=== PATIENT | female | born 1955 | race Caucasian/White ===

== ENCOUNTER → 2019-02-08 09:15 | Outpatient (CLI) | payer OTHER, SELFPAY ==
--- NOTE | 2019-02-08 | DI.MG.S_ITS ---
BILATERAL DIGITAL SCREENING MAMMOGRAM 3D/2D WITH CAD WITH AUGMENTATION: 02/08/2019 CLINICAL: Routine screening. Comparison is made to exams dated: 09/14/2017 mammogram, 08/19/2016 mammogram, and 08/16/2015 mammogram - [facility]. The tissue of both breasts is heterogeneously dense. This may lower the sensitivity of mammography. Current study was also evaluated with a Computer Aided Detection (CAD) system. Bilateral breast implants are intact. No significant masses, calcifications, or other findings are seen in either breast. There has been no significant interval change. IMPRESSION: NEGATIVE There is no mammographic evidence of malignancy. A 1 year screening mammogram is recommended. This exam was interpreted at Station ID: [id number]. NOTE: For mammograms, a report in lay terms will be sent to the patient. Approximately 15% of breast malignancies will not be visualized mammographically. In the management of a palpable breast mass, a negative mammogram must not discourage biopsy of a clinically suspicious lesion. Electronically Signed By: Wojciech jackson/vaughn:02/08/2019 16:58:11 copy to: NII LEE letter sent: Normal Exam ACR BI-RADS Category 1: Negative 3341F
== END ==
PROVIDERS: Family Provider Family Medicine; PCP Family Medicine; Visit Provider Specialist
DX: Z12.31 Encounter for screening mammogram for malignant neoplasm of breast (principal)
CPT/HCPCS: 77063; 77067

== ENCOUNTER → 2020-04-02 16:12 | Outpatient (CLI) | payer OTHER, SELFPAY ==
--- NOTE | 2020-04-02 | DI.MG.S_ITS ---
BILATERAL DIGITAL SCREENING MAMMOGRAM 3D/2D WITH CAD WITH AUGMENTATION: 04/02/2020 CLINICAL: Routine screening. Comparison is made to exams dated: 02/08/2019 mammogram, 09/14/2017 mammogram, and 08/19/2016 mammogram - [facility]. The tissue of both breasts is heterogeneously dense. This may lower the sensitivity of mammography. Current study was also evaluated with a Computer Aided Detection (CAD) system. Bilateral breast implants are intact. No significant masses, calcifications, or other findings are seen in either breast. There has been no significant interval change. IMPRESSION: NEGATIVE There is no mammographic evidence of malignancy. A 1 year screening mammogram is recommended. This exam was interpreted at Station ID: [id number]. NOTE: For mammograms, a report in lay terms will be sent to the patient. Approximately 15% of breast malignancies will not be visualized mammographically. In the management of a palpable breast mass, a negative mammogram must not discourage biopsy of a clinically suspicious lesion. Electronically Signed By: Nikolai perry/vaughn:04/02/2020 17:32:44 copy to: NII LEE letter sent: Normal Exam ACR BI-RADS Category 1: Negative 3341F
== END ==
PROVIDERS: Family Provider Family Medicine; PCP Family Medicine; Referring Provider Specialist; Visit Provider Specialist
DX: Z12.31 Encounter for screening mammogram for malignant neoplasm of breast (principal)
CPT/HCPCS: 77063; 77067

== ENCOUNTER → 2021-08-02 10:07 | Outpatient (CLI) | payer MEDICARE, OTHER, SELFPAY ==
--- NOTE | 2021-08-02 | DI.MG.S_ITS ---
BILATERAL DIGITAL SCREENING MAMMOGRAM 3D/2D WITH CAD WITH AUGMENTATION: 08/02/2021 CLINICAL: Routine screening. Comparison is made to exams dated: 04/02/2020 mammogram, 02/08/2019 mammogram, and 09/14/2017 mammogram - [facility]. The tissue of both breasts is heterogeneously dense. This may lower the sensitivity of mammography. Current study was also evaluated with a Computer Aided Detection (CAD) system. Bilateral breast implants are intact. No significant masses, calcifications, or other findings are seen in either breast. There has been no significant interval change. IMPRESSION: NEGATIVE There is no mammographic evidence of malignancy. A 1 year screening mammogram is recommended. This exam was interpreted at Station ID: [id number]. NOTE: For mammograms, a report in lay terms will be sent to the patient. Approximately 15% of breast malignancies will not be visualized mammographically. In the management of a palpable breast mass, a negative mammogram must not discourage biopsy of a clinically suspicious lesion. Electronically Signed By: Nikolai perry/vaughn:08/02/2021 14:42:59 copy to: NII LEE letter sent: Normal Exam ACR BI-RADS Category 1: Negative [id number]
--- NOTE | 2021-08-02 | DI.RAD.S_ITS ---
PROCEDURE: XR DEXA AXIAL SKELETON INDICATIONS: ROUTINE SCREENING COMPARISON: [facility], CR, DEXA AXIAL SKELETON, 09/14/2017, 13:51. FINDINGS: This blank DEXA report has been sent in error by the PACS system. The correct and complete report will be forthcoming in 1-2 days. Thank you for your patience and understanding. Dictated by: Cherelle Hankins MD, PhD on 08/02/2021 at 14:38 Approved by: Cherelle Hankins MD, PhD on 08/02/2021 at 14:38
== END ==
PROVIDERS: PCP Family Medicine; Referring Provider Family Medicine; Visit Provider Family Medicine
DX: M85.852 Other specified disorders of bone density and structure, left thigh; Z12.31 Encounter for screening mammogram for malignant neoplasm of breast; Z78.0 Asymptomatic menopausal state; K92.9 Disease of digestive system, unspecified; Z87.891 Personal history of nicotine dependence
CPT/HCPCS: 77063; 77067; 77080

== ENCOUNTER 2021-08-08 14:30 | Outpatient (RCR) | payer MEDICARE, OTHER, SELFPAY ==
--- NOTE | 2021-04-03 10:29 | PT.OIE ---
Current Diagnoses Unspecified urinary incontinence (03/27/21) Past Medical History (Last Reviewed 10/09/20 @ 13:02 by JUDITH Garcia) Depression Insomnia Obstructive sleep apnea Past Surgical History (Last Reviewed 10/09/20 @ 13:02 by JUDITH Garcia) History of breast augmentation Status post bunionectomy Status post tubal ligation Visit Care Team Role Provider Type Tono Young MD Attending Provider Non-Staff Primary Care Provider Referring Provider Specialty: Family Practice Address: [address] [place] [address], [phone] Email: Physical Therapy Initial Evaluation PT-OP-A Visit Information Start: 03/27/21 09:44 Freq: Status: Active Protocol: Document 03/27/21 11:15 [facility] (Rec: 04/02/21 17:05 [facility] [email or web address]) Out-Patient Physical Therapy Visit Information Visit Information Visit Type Initial Evaluation Visit Start Time 11:15 Visit Stop Time 12:00 Total Visit Minutes 45 Visit Number 1 Evaluation Information Evaluation Date 03/27/21 PT-OP-B Current Condition Start: 03/27/21 09:44 Freq: Status: Active Protocol: Document 03/27/21 11:26 [facility] (Rec: 03/27/21 11:41 [facility] [id number]) Current Condition History of Current Condition History of Current Condition a couple of years ago she just had stress incontinence, when she walks and hikes and does activities in standing she leaks. No c/o vaginal pressure, has had a Dand C and poylup removed. If she passes gas she will get a little bit. 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 IF she goes to long between voids she has do the urge deference tehcnique. Any time she walks she has some leakage. PT-OP-I Pelvic Floor Start: 03/27/21 09:44 Freq: Status: Active Protocol: Document 03/27/21 11:15 [facility] (Rec: 04/03/21 10:27 [facility] [email or web address]) Pelvic Floor Assessment Urine Pelvic Floor Surgery No Urinary Symptoms Urge Sensation Other Urinary Symptoms urinary leakage while walking, stress incontinence Leakage Size Medium Leaks Per Day 2 per week Voiding Frequency every 2 hours Nocturia no Urine Pad Type Maxi Pad Pelvic Clock Pelvic Clock 12-3 Atrophy Pelvic Clock 3-6 Atrophy Pelvic Clock 6-9 Atrophy Pelvic Clock 9-12 Atrophy Contraction Ability Voluntary Contraction Weak Voluntary Relaxation Weak Manual Muscle Testing Left 3 Manual Muscle Testing Right 3 Manual Muscle Testing Anterior 2 Manual Muscle Testing Posterior 3 PT-OP-Q Treatments Start: 03/27/21 09:44 Freq: Status: Active Protocol: Document 03/27/21 11:15 [facility] (Rec: 04/03/21 10:28 [facility] [email or web address]) Therapeutic Exercises Supine Exercises pelvic floor long holds Reps/Minutes x 10 reps 10 sec on 10 sec off Self-Care/Home Management Treatment Education Patient Education Home Exercise Program Other Education bladder retraining urge deference technique PT-OP-T Assessment and Plan Start: 03/27/21 09:44 Freq: Status: Active Protocol: Document 03/27/21 11:15 [facility] (Rec: 04/03/21 10:27 [facility] [email or web address]) Physical Therapy Assessment Rehab Potential Rehabilitation Potential Excellent Evaluation Complexity Number of Personal Factors/Comorbidities 0 Number of Body Systems Impaired 1-2 Clinical Presentation at Evaluation Stable Impairments Impairments Activity Tolerance,Functional Activities,Strength,Tone Other Impairments urinary stress and urge incontinence Goals Improve endurance of the pelvic floor Impairment Decreased pelvic floor endurance Kiln Pusher Goal (LTG) Improve endurance of the pelvic to 10 second hold time in both supine and standing LTG Duration 8 weeks Improve overall strength of the levator ani Impairment Decreased strength of the levator ani Kiln Pusher Goal (LTG) Improve strength of the levator ani to 4/5 or better for improved support of the bladder LTG Duration 8 weeks urinary leakage with strong urge to void Short Term Goal (STG) Alyssa is educated in the urge deference technique and bladder retraining STG Duration 4 weeks Kiln Pusher Goal (LTG) Alyssa reports overall reduction in urinary urgency and urge incontinence LTG Duration 8 weeks Alyssa is able to walk 3-5 miiles without c/o urinary leakage Impairment Urinary stress incontinence with walking [facility]cf Goal (LTG) Alyssa is able to walk 3-5 miles without c/o urinary leakge LTG Duration 8 weeks Assessment Summary Assessment Alyssa is an active 65 year old female who presents to physical therapy today with symptoms of urinary stress incontinence and urinary leakage when walking. She also describes urinary urgency . Her symptoms began two years ago and are worsening. She reports leaking 2 times per week and wears maxi pads for protection. Leakage is caused by waking and light activity and strong urge to void. We discussed water intake today and Alyssa reports she is most likely not drinking enough fluids and restricts fluids to avoid leakage. She also reports emptying her bladder frequently before experiencing the urge to void. With examination today Alyssa has limited endurance of levator ani contractions. She test 2/5 MMT for anterior wall strength and 3/5 MMT for all other parts of the pelvic clock. Treatment will emphasis bladder retraining and urge deference technique, bladder irritants and bladder health info, pelvic floor endurance training and neuro re-education. Alyssa is a good candidate for PT Physical Therapy Plan Frequency and Duration Frequency of Treatment 1x/Week Duration of Treatment 8 Plan of Care Start Date 03/27/21 Plan of Care End Date 05/22/21 Therapeutic Interventions Therapeutic Interventions Home Exercise Program, Neuromuscular Re-education, Patient/Caregiver Education, Self-Care/Home Management, Therapeutic Exercises Next Visit Focus/Plan Next Note Type Treatment Note Next Visit Plan Review urge deference technique and bladder retraining, EMG biofeedback for pelvic floor endurance training and strength.
--- NOTE | 2021-04-03 10:29 | PT.OPPOC ---
Physical, Occupational & Speech Therapy At [facility] Current Diagnoses Unspecified urinary incontinence (03/27/21) Visit Care Team Role Provider Type Tono Young MD Attending Provider Non-Staff Primary Care Provider Referring Provider Specialty: Family Practice Address: [address] [place] [address], [phone] Email: Plan Of Care PT-OP-T Assessment and Plan Start: 03/27/21 09:44 Freq: Status: Active Protocol: Document 03/27/21 11:15 [facility] (Rec: 04/03/21 10:27 [facility] [email or web address]) Physical Therapy Assessment Rehab Potential Rehabilitation Potential Excellent Evaluation Complexity Number of Personal Factors/Comorbidities 0 Number of Body Systems Impaired 1-2 Clinical Presentation at Evaluation Stable Impairments Impairments Activity Tolerance,Functional Activities,Strength,Tone Other Impairments urinary stress and urge incontinence Goals Improve endurance of the pelvic floor Impairment Decreased pelvic floor endurance Halfway Goal (LTG) Improve endurance of the pelvic to 10 second hold time in both supine and standing LTG Duration 8 weeks Improve overall strength of the levator ani Impairment Decreased strength of the levator ani Halfway Goal (LTG) Improve strength of the levator ani to 4/5 or better for improved support of the bladder LTG Duration 8 weeks urinary leakage with strong urge to void Short Term Goal (STG) Alyssa is educated in the urge deference technique and bladder retraining STG Duration 4 weeks Halfway Goal (LTG) Alyssa reports overall reduction in urinary urgency and urge incontinence LTG Duration 8 weeks Alyssa is able to walk 3-5 miiles without c/o urinary leakage Impairment Urinary stress incontinence with walking Logistics Clerk Goal (LTG) Alyssa is able to walk 3-5 miles without c/o urinary leakage LTG Duration 8 weeks Assessment Summary Assessment Alyssa is an active 65 year old female who presents to physical therapy today with symptoms of urinary stress incontinence and urinary leakage when walking. She also describes urinary urgency . Her symptoms began two years ago and are worsening. She reports leaking 2 times per week and wears maxi pads for protection. Leakage is caused by waking and light activity and strong urge to void. We discussed water intake today and Alyssa reports she is most likely not drinking enough fluids and restricts fluids to avoid leakage. She also reports emptying her bladder frequently before experiencing the urge to void. With examination today Alyssa has limited endurance of levator ani contractions. She test 2/5 MMT for anterior wall strength and 3/5 MMT for all other parts of the pelvic clock. Treatment will emphasis bladder retraining and urge deference technique, bladder irritants and bladder health info, pelvic floor endurance training and neuro re-education. Alyssa is a good candidate for PT Physical Therapy Plan Frequency and Duration Frequency of Treatment 1x/Week Duration of Treatment 8 Plan of Care Start Date 03/27/21 Plan of Care End Date 05/22/21 Therapeutic Interventions Therapeutic Interventions Home Exercise Program, Neuromuscular Re-education, Patient/Caregiver Education, Self-Care/Home Management, Therapeutic Exercises Next Visit Focus/Plan Next Note Type Treatment Note Next Visit Plan Review urge deference technique and bladder retraining, EMG biofeedback for pelvic floor endurance training and strength. Plan of Care Dates Plan of Care Start Date 03/27/21 Plan of Care End Date 05/22/21 Electronically Signed by: Shelbie Farrar, PT 04/03/21 1519 Please Sign and Return: I have reviewed this Plan of Care and certify that the skilled therapy services above are required to meet the patient?s needs. Physician Signature Date Printed Name and Credentials Clinical Instructor Signature Printed Name and Credentials
--- NOTE | 2021-04-23 17:09 | PT.OTN ---
Current Diagnoses Unspecified urinary incontinence (04/23/21) Physical Therapy Treatment Note PT-OP-A Visit Information Start: 03/27/21 09:44 Freq: Status: Active Protocol: Document 04/23/21 16:05 [facility] (Rec: 04/23/21 17:08 [facility] [email or web address]) Out-Patient Physical Therapy Visit Information Visit Information Visit Type Treatment Note Visit Start Time 16:05 Visit Stop Time 16:50 Total Visit Minutes 45 Visit Number 2 PT-OP-B Current Condition Start: 03/27/21 09:44 Freq: Status: Active Protocol: Document 03/27/21 11:15 [facility] (Rec: 03/27/21 11:41 [facility] [id number]) Current Condition History of Current Condition History of Current Condition a couple of years ago she just had stress incontinence, when she walks and hikes and does activities in standing she leaks. No c/o vaginal pressure, has had a Dand C and poylup removed. If she passes gas she will get a little bit. 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 IF she goes to long between voids she has do the urge deference tehcnique. Any time she walks she has some leakage. PT-OP-C Subjective Start: 03/27/21 09:44 Freq: Status: Active Protocol: Document 04/23/21 16:07 [facility] (Rec: 04/23/21 16:21 [facility] [id number]) OP-PT Subjective Patient Comments Patient Comments pt reports she cut back to 1 cup of coffee, she has light leakage when she walks, she is trying to drink 64 oz water per day. She is off her cpap machinge due to a recall but it is now waking her up 5 xms per night PT-OP-I Pelvic Floor Start: 03/27/21 09:44 Freq: Status: Active Protocol: Document 03/27/21 11:15 [facility] (Rec: 04/03/21 10:27 [facility] [id number]) Pelvic Floor Assessment Urine Pelvic Floor Surgery No Urinary Symptoms Urge Sensation Other Urinary Symptoms urinary leakage while walking, stress incontinence Leakage Size Medium Leaks Per Day 2 per week Voiding Frequency every 2 hours Nocturia no Urine Pad Type Maxi Pad Pelvic Clock Pelvic Clock 12-3 Atrophy Pelvic Clock 3-6 Atrophy Pelvic Clock 6-9 Atrophy Pelvic Clock 9-12 Atrophy Contraction Ability Voluntary Contraction Weak Voluntary Relaxation Weak Manual Muscle Testing Left 3 Manual Muscle Testing Right 3 Manual Muscle Testing Anterior 2 Manual Muscle Testing Posterior 3 PT-OP-Q Treatments Start: 03/27/21 09:44 Freq: Status: Active Protocol: Document 04/23/21 16:26 [facility] (Rec: 04/23/21 17:03 [facility] [id number]) Therapeutic Exercises Supine Exercises ball squeeze Reps/Minutes x 10 reps 5 second hold time x 10 sec rest pelvic floor stretches Supine Exercise Name happy baby and modified squat stretch Reps/Minutes 1-2 reps, focus on relaxing at the sitting bones pelvic floor long holds Side bilateral Reps/Minutes x 10 reps Comments 5.4 average 12.6 max Self-Care/Home Management Treatment Education Patient Education Home Exercise Program Other Education urge deference technique was reviewed with Alyssa and she was given handouts for HEP PT-OP-T Assessment and Plan Start: 03/27/21 09:44 Freq: Status: Active Protocol: Document 04/23/21 16:05 [facility] (Rec: 04/23/21 17:08 [facility] [email or web address]) Physical Therapy Assessment Assessment Summary Assessment Alyssa has been working on both her pelvic floor contractions and her increase in water intake. She notes that at times it feels difficult to fully relax her pelvic floor following a contraction. We reviewed urge deference technique today and initiated EMG biofeedback. Alyssa tolerated this well. Physical Therapy Plan Frequency and Duration Frequency of Treatment 1x/Week Duration of Treatment 8 Plan of Care Start Date 03/27/21 Plan of Care End Date 05/22/21 Therapeutic Interventions Therapeutic Interventions Home Exercise Program, Neuromuscular Re-education, Patient/Caregiver Education, Self-Care/Home Management, Therapeutic Exercises Next Visit Focus/Plan Next Note Type Treatment Note Next Visit Plan continue with EMG biofeedback, review stretches for the pelvic floor, progress strengthening
--- NOTE | 2021-05-02 16:00 | PT.OTN ---
Current Diagnoses Unspecified urinary incontinence (05/02/21) Physical Therapy Treatment Note PT-OP-A Visit Information Start: 03/27/21 09:44 Freq: Status: Active Protocol: Document 05/02/21 13:48 [facility] (Rec: 05/02/21 14:34 [facility] [id number]) Out-Patient Physical Therapy Visit Information Visit Information Visit Type Treatment Note Visit Start Time 13:45 Visit Stop Time 14:30 Total Visit Minutes 45 Visit Number 3 PT-OP-B Current Condition Start: 03/27/21 09:44 Freq: Status: Active Protocol: Document 03/27/21 11:15 [facility] (Rec: 03/27/21 11:41 [facility] [id number]) Current Condition History of Current Condition History of Current Condition a couple of years ago she just had stress incontinence, when she walks and hikes and does activities in standing she leaks. No c/o vaginal pressure, has had a Dand C and poylup removed. If she passes gas she will get a little bit. 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 IF she goes to long between voids she has do the urge deference tehcnique. Any time she walks she has some leakage. PT-OP-C Subjective Start: 03/27/21 09:44 Freq: Status: Active Protocol: Document 05/02/21 13:48 [facility] (Rec: 05/02/21 14:34 [facility] [id number]) OP-PT Subjective Patient Comments Patient Comments pt reports the stretvches are helping and she is feeling a difference in her hips, stress incontinence a bit better Patient Reported Progress Improving PT-OP-I Pelvic Floor Start: 03/27/21 09:44 Freq: Status: Active Protocol: Document 03/27/21 11:15 [facility] (Rec: 04/03/21 10:27 [facility] [id number]) Pelvic Floor Assessment Urine Pelvic Floor Surgery No Urinary Symptoms Urge Sensation Other Urinary Symptoms urinary leakage while walking, stress incontinence Leakage Size Medium Leaks Per Day 2 per week Voiding Frequency every 2 hours Nocturia no Urine Pad Type Maxi Pad Pelvic Clock Pelvic Clock 12-3 Atrophy Pelvic Clock 3-6 Atrophy Pelvic Clock 6-9 Atrophy Pelvic Clock 9-12 Atrophy Contraction Ability Voluntary Contraction Weak Voluntary Relaxation Weak Manual Muscle Testing Left 3 Manual Muscle Testing Right 3 Manual Muscle Testing Anterior 2 Manual Muscle Testing Posterior 3 PT-OP-Q Treatments Start: 03/27/21 09:44 Freq: Status: Active Protocol: Document 05/02/21 13:48 [facility] (Rec: 05/02/21 14:34 [facility] [id number]) Therapeutic Exercises Supine Exercises TA with marches Reps/Minutes x 10 reps diaphragmatic breathing Reps/Minutes x 5 reps Sidelying Exercises clam shells Reps/Minutes 3 x 10 reps Other Exercises sit to stand with TAS engagement Reps/Minutes reviewed with patient for HEP quadruped TA Reps/Minutes x 10 reps Comments pt tends to [facility] with her upper abdominas PT-OP-T Assessment and Plan Start: 03/27/21 09:44 Freq: Status: Active Protocol: Document 05/02/21 13:48 [facility] (Rec: 05/02/21 14:34 [facility] [id number]) Physical Therapy Assessment Goals Alyssa is able to walk 3-5 miiles without c/o urinary leakage Impairment Urinary stress incontinence with walking Metaphysicist Goal (LTG) Alyssa is able to walk 3-5 miles without c/o urinary leakge currently she hasn't had any issues with walking. She will be near [facility] next week and she will test out her strength next week. LTG Duration 8 weeks Assessment Summary Assessment Alyssa didn't have her electrode for EMG biofeedback with her today so we worked on TA stabilization along with pelvic floor. I added in clam shells. Alyssa does tend to [facility] with her upper abdominal wall so we worked on diaphragmatic breathing and releasing from the rib cage to decrease downward force on the bladder Physical Therapy Plan Frequency and Duration Frequency of Treatment 1x/Week Duration of Treatment 8 Plan of Care Start Date 03/27/21 Plan of Care End Date 05/22/21 Therapeutic Interventions Therapeutic Interventions Home Exercise Program, Neuromuscular Re-education, Patient/Caregiver Education, Self-Care/Home Management, Therapeutic Exercises Next Visit Focus/Plan Next Note Type Treatment Note Next Visit Plan review clam shells and diaphragmatic breathing, TA engagement without overuse of the upper abdominals, pelvic floor strengthening
--- NOTE | 2021-05-16 17:08 | PT.OTN ---
Current Diagnoses Unspecified urinary incontinence (05/16/21) Physical Therapy Treatment Note PT-OP-A Visit Information Start: 03/27/21 09:44 Freq: Status: Active Protocol: Document 05/16/21 11:15 [facility] (Rec: 05/16/21 11:37 [facility] [id number]) Out-Patient Physical Therapy Visit Information Visit Information Visit Type Treatment Note Visit Start Time 11:15 Visit Stop Time 12:00 Total Visit Minutes 45 Visit Number 4 PT-OP-B Current Condition Start: 03/27/21 09:44 Freq: Status: Active Protocol: Document 03/27/21 11:15 [facility] (Rec: 03/27/21 11:41 [facility] [id number]) Current Condition History of Current Condition History of Current Condition a couple of years ago she just had stress incontinence, when she walks and hikes and does activities in standing she leaks. No c/o vaginal pressure, has had a Dand C and poylup removed. If she passes gas she will get a little bit. 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 IF she goes to long between voids she has do the urge deference tehcnique. Any time she walks she has some leakage. PT-OP-C Subjective Start: 03/27/21 09:44 Freq: Status: Active Protocol: Document 05/16/21 11:15 [facility] (Rec: 05/16/21 11:37 [facility] [id number]) OP-PT Subjective Patient Comments Patient Comments pt reports she did she still has some leaking with a quick sneeze PT-OP-I Pelvic Floor Start: 03/27/21 09:44 Freq: Status: Active Protocol: Document 03/27/21 11:15 [facility] (Rec: 04/03/21 10:27 [facility] [id number]) Pelvic Floor Assessment Urine Pelvic Floor Surgery No Urinary Symptoms Urge Sensation Other Urinary Symptoms urinary leakage while walking, stress incontinence Leakage Size Medium Leaks Per Day 2 per week Voiding Frequency every 2 hours Nocturia no Urine Pad Type Maxi Pad Pelvic Clock Pelvic Clock 12-3 Atrophy Pelvic Clock 3-6 Atrophy Pelvic Clock 6-9 Atrophy Pelvic Clock 9-12 Atrophy Contraction Ability Voluntary Contraction Weak Voluntary Relaxation Weak Manual Muscle Testing Left 3 Manual Muscle Testing Right 3 Manual Muscle Testing Anterior 2 Manual Muscle Testing Posterior 3 PT-OP-Q Treatments Start: 03/27/21 09:44 Freq: Status: Active Protocol: Document 05/16/21 11:15 [facility] (Rec: 05/16/21 17:07 [facility] [id number]) Therapeutic Exercises Supine Exercises TA with marches Reps/Minutes x 10 reps ball squeeze Reps/Minutes x 5 reps pelvic floor long holds Side bilateral Reps/Minutes x 10 reps Sidelying Exercises clam shells Reps/Minutes 3 x 10 reps Standing Exercises standing pelvic floor quick flicks Reps/Minutes x 10 reps Comments worked on avoiding use of upper abdominal muscles PT-OP-T Assessment and Plan Start: 03/27/21 09:44 Freq: Status: Active Protocol: Document 05/16/21 11:15 [facility] (Rec: 05/16/21 17:07 [facility] [id number]) Physical Therapy Assessment Assessment Summary Assessment Pt is doing much better with pelvic floor contractions and showing a stronger pelvic floor contraction on EMG biofeedback. I started her with quick contractions in standing and we talked about squeezing prior to her sneezing Physical Therapy Plan Frequency and Duration Frequency of Treatment 1x/Week Duration of Treatment 8 Plan of Care Start Date 03/27/21 Plan of Care End Date 05/22/21 Therapeutic Interventions Therapeutic Interventions Home Exercise Program, Neuromuscular Re-education, Patient/Caregiver Education, Self-Care/Home Management, Therapeutic Exercises Next Visit Focus/Plan Next Note Type Treatment Note Next Visit Plan review clam shells and diaphragmatic breathing, TA engagement without overuse of the upper abdominals, pelvic floor strengthening, manual recheck of pelvic floor strength and tone next visit.
--- NOTE | 2021-05-23 17:49 | PT.OTN ---
Current Diagnoses Unspecified urinary incontinence (05/23/21) Physical Therapy Treatment Note PT-OP-A Visit Information Start: 03/27/21 09:44 Freq: Status: Active Protocol: Document 05/23/21 13:45 [facility] (Rec: 05/26/21 17:49 [facility] [email or web address]) Out-Patient Physical Therapy Visit Information Visit Information Visit Type Treatment Note Visit Start Time 13:45 Visit Stop Time 14:30 Total Visit Minutes 45 Visit Number 5 PT-OP-B Current Condition Start: 03/27/21 09:44 Freq: Status: Active Protocol: Document 03/27/21 11:15 [facility] (Rec: 03/27/21 11:41 [facility] [id number]) Current Condition History of Current Condition History of Current Condition a couple of years ago she just had stress incontinence, when she walks and hikes and does activities in standing she leaks. No c/o vaginal pressure, has had a Dand C and poylup removed. If she passes gas she will get a little bit. 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 IF she goes to long between voids she has do the urge deference tehcnique. Any time she walks she has some leakage. PT-OP-C Subjective Start: 03/27/21 09:44 Freq: Status: Active Protocol: Document 05/23/21 13:52 [facility] (Rec: 05/23/21 14:13 [facility] [id number]) OP-PT Subjective Patient Comments Patient Comments Took a long walk walk and didn 't have any problem, did have a couple of sneezes that caused her leakage. PT-OP-I Pelvic Floor Start: 03/27/21 09:44 Freq: Status: Active Protocol: Document 03/27/21 11:15 [facility] (Rec: 04/03/21 10:27 [facility] [id number]) Pelvic Floor Assessment Urine Pelvic Floor Surgery No Urinary Symptoms Urge Sensation Other Urinary Symptoms urinary leakage while walking, stress incontinence Leakage Size Medium Leaks Per Day 2 per week Voiding Frequency every 2 hours Nocturia no Urine Pad Type Maxi Pad Pelvic Clock Pelvic Clock 12-3 Atrophy Pelvic Clock 3-6 Atrophy Pelvic Clock 6-9 Atrophy Pelvic Clock 9-12 Atrophy Contraction Ability Voluntary Contraction Weak Voluntary Relaxation Weak Manual Muscle Testing Left 3 Manual Muscle Testing Right 3 Manual Muscle Testing Anterior 2 Manual Muscle Testing Posterior 3 PT-OP-Q Treatments Start: 03/27/21 09:44 Freq: Status: Active Protocol: Document 05/23/21 13:52 [facility] (Rec: 05/23/21 14:13 [facility] [id number]) Therapeutic Exercises Supine Exercises pelvic floor long holds Comments 10.1 average and 25.3 uv PT-OP-T Assessment and Plan Start: 03/27/21 09:44 Freq: Status: Active Protocol: Document 05/23/21 13:45 [facility] (Rec: 05/26/21 17:49 [facility] [id number]) Physical Therapy Assessment Goals Improve endurance of the pelvic floor Impairment Decreased pelvic floor endurance [facility] Goal (LTG) Improve endurance of the pelvic to 10 second hold time in both supine and standing Excellent progress, 10 second hold for supine and working on 5 second hold time now for standing LTG Duration 8 weeks Improve overall strength of the levator ani Impairment Decreased strength of the levator ani [facility] Goal (LTG) Improve strength of the levator ani to 4/5 or better for improved support of the bladder Good progress LTG Duration 8 weeks urinary leakage with strong urge to void Short Term Goal (STG) Alyssa is educated in the urge deference technique and bladder retraining GOAL MET STG Duration 4 weeks [facility] Goal (LTG) Alyssa reports overall reduction in urinary urgency and urge incontinence Excellent progress LTG Duration 8 weeks Alyssa is able to walk 3-5 miiles without c/o urinary leakage Impairment Urinary stress incontinence with walking Change Control Analyst Goal (LTG) Alyssa is able to walk 3-5 miles without c/o urinary leakge as of 05/13/21 pt is able to ambulate 4-5 miles without leakage LTG Duration 8 weeks Progress Towards Goals Progress Towards Goals Progressing Toward Goals Assessment Summary Assessment Alyssa continues to show improvements with strength. She reports being able to go on a long walk without leaking . Still has smal amounts of leaking with strong sneeze. Overall she is improving. She was able to stand today for quick pelvic floor contractions and we are progressing her standing endurance. She would benefit from continued PT. Physical Therapy Plan Frequency and Duration Frequency of Treatment 1x/Week Duration of Treatment 8 Plan of Care Start Date 05/23/21 Plan of Care End Date 07/23/21 Therapeutic Interventions Therapeutic Interventions Home Exercise Program, Neuromuscular Re-education, Patient/Caregiver Education, Self-Care/Home Management, Therapeutic Exercises Next Visit Focus/Plan Next Visit Plan review all established exercises and progress her standing pelvic floor endurance holds
--- NOTE | 2021-06-10 18:12 | PT.OTN ---
Current Diagnoses Unspecified urinary incontinence (06/06/21) Physical Therapy Treatment Note PT-OP-A Visit Information Start: 03/27/21 09:44 Freq: Status: Active Protocol: Document 06/06/21 13:54 [facility] (Rec: 06/06/21 14:37 [facility] [id number]) Out-Patient Physical Therapy Visit Information Visit Information Visit Type Progress Note Visit Start Time 13:50 Visit Stop Time 14:35 Total Visit Minutes 45 Visit Number 6 Evaluation Information Evaluation Date 03/27/21 PT-OP-B Current Condition Start: 03/27/21 09:44 Freq: Status: Active Protocol: Document 03/27/21 11:15 [facility] (Rec: 03/27/21 11:41 [facility] [id number]) Current Condition History of Current Condition History of Current Condition a couple of years ago she just had stress incontinence, when she walks and hikes and does activities in standing she leaks. No c/o vaginal pressure, has had a Dand C and poylup removed. If she passes gas she will get a little bit. 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 IF she goes to long between voids she has do the urge deference tehcnique. Any time she walks she has some leakage. PT-OP-C Subjective Start: 03/27/21 09:44 Freq: Status: Active Protocol: Document 05/23/21 13:52 [facility] (Rec: 05/23/21 14:13 [facility] [id number]) OP-PT Subjective Patient Comments Patient Comments Took a long walk walk and didn 't have any problem, did have a couple of sneezes that caused her leakage. PT-OP-I Pelvic Floor Start: 03/27/21 09:44 Freq: Status: Active Protocol: Document 06/06/21 13:54 [facility] (Rec: 06/06/21 14:37 [facility] [id number]) Pelvic Floor Assessment Contraction Ability Voluntary Contraction Moderate Voluntary Relaxation Moderate Manual Muscle Testing Left 4 Manual Muscle Testing Right 4 Manual Muscle Testing Anterior 3 Manual Muscle Testing Posterior 4 PT-OP-Q Treatments Start: 03/27/21 09:44 Freq: Status: Active Protocol: Document 06/06/21 13:54 [facility] (Rec: 06/06/21 14:46 [facility] [id number]) Therapeutic Exercises Supine Exercises templates for coordination and eccentric control Reps/Minutes x 5 min pelvic floor quick contractions Reps/Minutes 10 reps TA with marches Reps/Minutes x 10 reps pelvic floor long holds Comments 7.7 and 17.7 uv max. Standing Exercises standing long holds Reps/Minutes 10 reps Comments cues to avoid gluteal squeezeing. standing pelvic floor quick flicks Reps/Minutes x 10 reps Comments worked on avoiding use of upper abdominal muscles Other Exercises sit to stand with TAS engagement Reps/Minutes reviewed with patient for HEP Manual Therapy Treatment Manual Techniques manual reassessment of pelvic floor strength Comments manual reassessment of pelvic floor tone and strength, 4/5 MMT for lateral and posterior garcia and 3/5 MMT for the anterior wall. PT-OP-T Assessment and Plan Start: 03/27/21 09:44 Freq: Status: Active Protocol: Document 06/06/21 13:54 [facility] (Rec: 06/06/21 14:37 [facility] [id number]) Physical Therapy Assessment Goals Improve endurance of the pelvic floor Impairment Decreased pelvic floor endurance String Laster Goal (LTG) Improve endurance of the pelvic to 10 second hold time in both supine and standing Excellent progress, 10 second hold for supine and working on 5 second hold time now for standing LTG Duration 8 weeks Improve overall strength of the levator ani Impairment Decreased strength of the levator ani String Laster Goal (LTG) Improve strength of the levator ani to 4/5 or better for improved support of the bladder excellent progress, the anterior wall is 3/5 MMT all others are 4/5 MMT LTG Duration 8 weeks urinary leakage with strong urge to void Short Term Goal (STG) Alyssa is educated in the urge deference technique and bladder retraining GOAL MET STG Duration 4 weeks [facility]iary Goal (LTG) Alyssa reports overall reduction in urinary urgency and urge incontinence Excellent progress LTG Duration 8 weeks Alyssa is able to walk 3-5 miiles without c/o urinary leakage Impairment Urinary stress incontinence with walking Penitentiary Goal (LTG) Alyssa is able to walk 3-5 miles without c/o urinary leakge as of 05/13/21 pt is able to ambulate 4-5 miles without leakage LTG Duration 8 weeks Assessment Summary Assessment Alyssa continues to show improvements with strength. She reports being able to go on a long walk without leaking . Still has smal amounts of leaking with strong sneeze. Overall she is improving. She was able to stand today for quick pelvic floor contractions and we are progressing her standing endurance. She would benefit from continued PT Physical Therapy Plan Frequency and Duration Frequency of Treatment Every Other Week Duration of Treatment 8 Plan of Care Start Date 06/06/21 Plan of Care End Date 08/22/21 Next Visit Focus/Plan Next Note Type Progress Note
--- NOTE | 2021-06-10 18:14 | PT.OPPOC ---
Physical, Occupational & Speech Therapy At [facility] Current Diagnoses Unspecified urinary incontinence (06/06/21) Visit Care Team Role Provider Type Tono Young MD Attending Provider Non-Staff Primary Care Provider Referring Provider Specialty: Family Practice Address: [address] [place] [address], [phone] Email: Plan Of Care PT-OP-T Assessment and Plan Start: 03/27/21 09:44 Freq: Status: Active Protocol: Document 06/06/21 13:54 [facility] (Rec: 06/06/21 14:37 [facility] [id number]) Physical Therapy Assessment Goals Improve endurance of the pelvic floor Impairment Decreased pelvic floor endurance Snf Goal (LTG) Improve endurance of the pelvic to 10 second hold time in both supine and standing Excellent progress, 10 second hold for supine and working on 5 second hold time now for standing LTG Duration 8 weeks Improve overall strength of the levator ani Impairment Decreased strength of the levator ani Snf Goal (LTG) Improve strength of the levator ani to 4/5 or better for improved support of the bladder excellent progress, the anterior wall is 3/5 MMT all others are 4/5 MMT LTG Duration 8 weeks urinary leakage with strong urge to void Short Term Goal (STG) Alyssa is educated in the urge deference technique and bladder retraining GOAL MET STG Duration 4 weeks Net Mender Goal (LTG) Alyssa reports overall reduction in urinary urgency and urge incontinence Excellent progress LTG Duration 8 weeks Alyssa is able to walk 3-5 miiles without c/o urinary leakage Impairment Urinary stress incontinence with walking Snf Goal (LTG) Alyssa is able to walk 3-5 miles without c/o urinary leakage as of 05/13/21 pt is able to ambulate 4-5 miles without leakage LTG Duration 8 weeks Assessment Summary Assessment Alyssa continues to show improvements with strength. She reports being able to go on a long walk without leaking . Still has smal amounts of leaking with strong sneeze. Overall she is improving. She was able to stand today for quick pelvic floor contractions and we are progressing her standing endurance. She would benefit from continued PT Physical Therapy Plan Frequency and Duration Frequency of Treatment Every Other Week Duration of Treatment 8 Plan of Care Start Date 06/06/21 Plan of Care End Date 08/22/21 Next Visit Focus/Plan Next Note Type Progress Note Plan of Care Dates Plan of Care Start Date 06/06/21 Plan of Care End Date 08/22/21 Electronically Signed by: Shelbie Farrar, PT 06/10/21 [id number] Please Sign and Return: I have reviewed this Plan of Care and certify that the skilled therapy services above are required to meet the patient?s needs. Physician Signature Date Printed Name and Credentials Clinical Instructor Signature Printed Name and Credentials
--- NOTE | 2021-08-08 17:08 | PT.OTN ---
Current Diagnoses Unspecified urinary incontinence (08/08/21) Physical Therapy Treatment Note PT-OP-A Visit Information Start: 03/27/21 09:44 Freq: Status: Active Protocol: Document 08/08/21 14:34 [facility] (Rec: 08/08/21 17:08 [facility] [id number]) Out-Patient Physical Therapy Visit Information Visit Information Visit Type Treatment Note Visit Start Time 14:35 Visit Stop Time 15:15 Total Visit Minutes 40 Visit Number 7 PT-OP-B Current Condition Start: 03/27/21 09:44 Freq: Status: Active Protocol: Document 03/27/21 11:15 [facility] (Rec: 03/27/21 11:41 [facility] [id number]) Current Condition History of Current Condition History of Current Condition a couple of years ago she just had stress incontinence, when she walks and hikes and does activities in standing she leaks. No c/o vaginal pressure, has had a Dand C and poylup removed. If she passes gas she will get a little bit. 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 IF she goes to long between voids she has do the urge deference tehcnique. Any time she walks she has some leakage. PT-OP-C Subjective Start: 03/27/21 09:44 Freq: Status: Active Protocol: Document 08/08/21 14:34 [facility] (Rec: 08/08/21 17:08 [facility] [id number]) OP-PT Subjective Patient Comments Patient Comments right sided knee pain has limited her walking, she notes that with sneezing she is not leaking PT-OP-I Pelvic Floor Start: 03/27/21 09:44 Freq: Status: Active Protocol: Document 06/06/21 13:54 [facility] (Rec: 06/06/21 14:37 [facility] [id number]) Pelvic Floor Assessment Contraction Ability Voluntary Contraction Moderate Voluntary Relaxation Moderate Manual Muscle Testing Left 4 Manual Muscle Testing Right 4 Manual Muscle Testing Anterior 3 Manual Muscle Testing Posterior 4 PT-OP-Q Treatments Start: 03/27/21 09:44 Freq: Status: Active Protocol: Document 08/08/21 14:34 [facility] (Rec: 08/08/21 17:08 [facility] [id number]) Therapeutic Exercises Supine Exercises templates for coordination and eccentric control Reps/Minutes x 5 min pelvic floor quick contractions Reps/Minutes 10 reps TA with marches Reps/Minutes x 10 reps pelvic floor long holds Comments 12.6 uv and 32.5 uv Standing Exercises standing long holds Comments 12.1 and 25 max standing pelvic floor quick flicks Reps/Minutes x 10 reps Comments worked on avoiding use of upper abdominal muscles Other Exercises sit to stand with TAS engagement Reps/Minutes reviewed with patient for HEP PT-OP-T Assessment and Plan Start: 03/27/21 09:44 Freq: Status: Active Protocol: Document 08/08/21 14:34 [facility] (Rec: 08/08/21 17:08 [facility] [id number]) Physical Therapy Assessment Goals Improve endurance of the pelvic floor Impairment Decreased pelvic floor endurance Residential Goal (LTG) Improve endurance of the pelvic to 10 second hold time in both supine and standing Excellent progress, 10 second hold for supine and working on 5 second hold time now for standing LTG Duration 8 weeks Improve overall strength of the levator ani Impairment Decreased strength of the levator ani Residential Goal (LTG) Improve strength of the levator ani to 4/5 or better for improved support of the bladder excellent progress, the anterior wall is 3/5 MMT all others are 4/5 MMT LTG Duration 8 weeks urinary leakage with strong urge to void Short Term Goal (STG) Alyssa is educated in the urge deference technique and bladder retraining GOAL MET STG Duration 4 weeks Residential Goal (LTG) Alyssa reports overall reduction in urinary urgency and urge incontinence Excellent progress LTG Duration 8 weeks Alyssa is able to walk 3-5 miiles without c/o urinary leakage Impairment Urinary stress incontinence with walking Informatics Nurse Goal (LTG) Alyssa is able to walk 3-5 miles without c/o urinary leakage as of 05/13/21 pt is able to ambulate 4-5 miles without leakage LTG Duration 8 weeks Assessment Summary Assessment Alyssa increased her strength while working on her own the past 2 months. SHe is able to do all her exercises in standing now and is now experiencing any leaking with activity. She will be discharged to a [facility] at this time Physical Therapy Plan Discharge Physical Therapy Discharge Reasons Goals Met
== END 2021-09-24 08:43 ==
LOC: PHYS 14:30
PROVIDERS: PCP Family Medicine; Referring Provider Family Medicine; Visit Provider Family Medicine
DX: R32 Unspecified urinary incontinence (principal)
CPT/HCPCS: 97110; 97140; 97161; 97535

== ENCOUNTER → 2022-02-26 09:27 | Outpatient (CLI) | payer MEDICARE, OTHER, SELFPAY ==
--- NOTE | 2022-02-26 | DI.MRI.S_ITS ---
PROCEDURE: MR KNEE RT WO CON INDICATIONS: Other tear of medial meniscus, current injury, right knee, i TECHNIQUE: Noncontrast sagittal PD fast spin echo and T2 fast spin echo with fat saturation, sagittal 3-D FLASH with fat saturation; coronal T1 spin echo and PD fast spin echo with fat saturation, and axial PD fast spin echo with fat saturation through the knee. COMPARISON: None. FINDINGS: Image quality: Excellent. Menisci: Peripheral displacement of medial meniscus bowing medial collateral ligament is seen. Complex tear involving posterior horn of medial meniscus is noted extending to both superior and inferior articulating surfaces. There is no focal lateral meniscal tear. The meniscal root ligaments appear intact. Cruciate ligaments: The anterior cruciate ligament is mildly thickened. PCL is intact. Medial structures: Low-grade MCL sprain/partial-thickness tear is seen. The posterior oblique ligament, semimembranosus tendon insertions, oblique popliteal ligament, and meniscocapsular junction appear intact. Visualized portions of the pes anserinus tendons appear normal. No abnormal bursal fluid. Lateral structures: The lateral collateral ligament, long and short heads of the biceps femoris tendon appear intact. The popliteus tendon appears normal; the popliteofibular ligament appears intact. The posterosuperior and anteroinferior popliteomeniscal fascicles appear intact. The arcuate and fabellofibular ligaments appear intact, on either side of the lateral inferior geniculate artery. Iliotibial band appears normal. Anterior structures: The quadriceps and patellar tendons appear intact. Patellar alignment is normal. No femoral trochlear dysplasia or ventral trochlear prominence. No edema in the infrapatellar fat pad. 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 Mild lateral femoral tibial compartment osteoarthritis and low-grade chondromalacia is also noted. Patellar tendon is intact. Joint space: There is moderate amount of joint fluid. Lobulated popliteal cyst is seen measures up to 1.8 x 2.7 x 4.5 cm in size. Normal appearing synovial plicae are incidentally noted. IMPRESSION: 1. Complex tear involving posterior horn of medial meniscus extending to both superior and inferior articulating surfaces. No focal lateral meniscal tear. 2. Mild ACL sprain. No ACL rupture. PCL is intact. 3. Low-grade MCL sprain/partial-thickness tear. 4. 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 Mild lateral femoral tibial compartment osteoarthritis and low-grade chondromalacia. No fracture or dislocation. 5. Moderate joint effusion and a popliteal cyst as above. Dictated by: Nura Bah M.D. on 02/26/2022 at 12:36 Approved by: Nura Bah M.D. on 02/26/2022 at 12:41
== END ==
PROVIDERS: PCP Family Medicine; Referring Provider Orthopaedic Surgery; Visit Provider Orthopaedic Surgery
DX: S83.231A Complex tear of medial meniscus, current injury, right knee, initial encounter (principal); S83.511A Sprain of anterior cruciate ligament of right knee, initial encounter; S83.411A Sprain of medial collateral ligament of right knee, initial encounter; M17.11 Unilateral primary osteoarthritis, right knee; M94.261 Chondromalacia, right knee; M71.21 Synovial cyst of popliteal space [Baker], right knee; M25.461 Effusion, right knee; X58.XXXA Exposure to other specified factors, initial encounter
CPT/HCPCS: 73721

== ENCOUNTER → 2022-08-07 11:26 | Outpatient (CLI) | payer MEDICARE, OTHER, SELFPAY ==
--- NOTE | 2022-08-07 | DI.MG.S_ITS ---
BILATERAL DIGITAL SCREENING MAMMOGRAM 3D/2D WITH CAD WITH AUGMENTATION: 08/07/2022 CLINICAL: Patient presents for routine screening. S/P bilateral augmentation. Comparison is made to exams dated: 08/02/2021 mammogram, 04/02/2020 mammogram, and 02/08/2019 mammogram - [facility]. Both breasts are heterogeneously dense, which may obscure small masses (category c / 51-75% glandular tissue). Current study was also evaluated with a Computer Aided Detection (CAD) system. Bilateral breast implants are intact. No significant masses, calcifications, or other findings are seen in either breast. There has been no significant interval change. IMPRESSION: NEGATIVE There is no mammographic evidence of malignancy. A 1 year screening mammogram is recommended. Based on the Tyrer Cuzick model (a risk assessment model) the patient's lifetime risk is 10.4% and her 10 year risk is 5.3%. According to the ACR, ACS, and NCCN guidelines, an annual breast MRI exam along with mammogram is recommended if the patient's lifetime risk is 20% or greater. This exam was interpreted at Station ID: [id number]. NOTE: For mammograms, a report in lay terms will be sent to the patient. Approximately 15% of breast malignancies will not be visualized mammographically. In the management of a palpable breast mass, a negative mammogram must not discourage biopsy of a clinically suspicious lesion. Electronically Signed By: Josh kaufman/vaughn:08/07/2022 12:51:25 copy to: NII LEE letter sent: Normal Exam ACR BI-RADS Category 1: Negative [id number]
== END ==
PROVIDERS: PCP Family Medicine; Referring Provider Family Medicine; Visit Provider Family Medicine
DX: Z12.31 Encounter for screening mammogram for malignant neoplasm of breast (principal); Z98.82 Breast implant status
CPT/HCPCS: 77063; 77067

== ENCOUNTER → 2023-08-27 | Outpatient (CLI) | payer MEDICARE, OTHER, SELFPAY ==
--- NOTE | 2023-08-27 | DI.RAD.S_ITS ---
Bone Density Report Name: NADJA OCONNOR Age: 67 Sex: Female Ethnicity: White Date of : 1955 Indication: osteopenia; Referring Provider: NII LEE Study: Bone densitometry was performed. Exam Date: August 27, 2023 Accession number: [id number] Bone Density: Region BMD T-score Z-score Classification AP Spine(L1-L4) 0.916 -1.2 0.8 Osteopenia Femoral Neck (Left) 0.603 -2.2 -0.5 Osteopenia Total Hip (Left) 0.751 -1.6 -0.2 Osteopenia Femoral Neck (Right) 0.620 -2.1 -0.4 Osteopenia Total Hip (Right) 0.733 -1.7 -0.3 Osteopenia Total Hip Mean 0.742 -1.7 -0.3 Osteopenia World Health Organization criteria for BMD impression classify patients as: Normal (T-score at or above -1.0), Osteopenia (T-score between -1.0 and -2.5), or Osteoporosis (T-score at or below -2.5). 10-year Fracture Risk(1): Major Osteoporotic Fracture 11% Hip Fracture 2.1% Reported Risk Factors: [place] (), Neck BMD=0.603, BMI=20.3 (1) FRAX(R) Version 3.08. Fracture probability calculated for an untreated patient. Fracture probability may be lower if the patient has received treatment. Previous Exams: -- Region Exam Age BMD T-score BMD Change BMD Change Date g/cm2 vs Baseline vs Previous -- AP Spine (L1-L4) 08/27/2023 67 0.916 -1.2 -0.051 (-5.3%)# -0.051 (-5.3%)# 08/02/2021 65 0.967 -0.7 Total Hip(Left) 08/27/2023 67 0.751 -1.6 -0.029 (-3.7%)# -0.029 (-3.7%)# 08/02/2021 65 0.780 -1.3 Total Hip(Right) 08/27/2023 67 0.733 -1.7 -0.100 (-12.0%)# -0.100 (-12.0%)# 08/02/2021 65 0.833 -0.9 -- *Denotes significance at 95% confidence level, LSC for AP Spine = 0.022 g/cm2, LSC for Total Hip = 0.027 g/cm2 # Denotes dissimilar scan types or analysis methods Impression: The patient has low bone mass, based on the Left Femoral Neck T-score. The patient has an estimated ten-year risk of hip fracture of 2.1% and an estimated ten-year risk of major fracture of 11%, based on the WHO FRAX algorithm. No significant bone loss was observed. Discussion: BONE DENSITY IS LOW AT ONE OR MORE SKELETAL SITES. This patient's lowest T-score is low at one or more skeletal sites. It meets the World Health Organization's (WHO) criteria for low bone mass (T-score between -1.0 and -2.5). The patient's 10-year risk of fracture as calculated by FRAX is less than the threshold where pharmacological therapy is recommended by the National Osteoporosis Foundation (NOF). However, all treatment decisions require clinical judgment and consideration of individual patient factors, including patient preferences, comorbidities, previous drug use, risk factors not captured in the FRAX model (e.g., frailty, falls, vitamin D deficiency, increased bone turnover, interval significant decline in bone density) and possible under or overestimation of fracture risk by FRAX. The patient should follow a healthful lifestyle (good nutrition with adequate calcium and vitamin D, and appropriate weight-bearing exercise). Follow-Up: Consider repeating this study in 2 to 3 years to reassess this patient's status, or sooner if there is some new clinical indication. Reported by: POLI BRENNER M.D. on 08/27/2023 1:08:00 PM.
== END ==
PROVIDERS: PCP Family Medicine; Referring Provider Family Medicine; Visit Provider Family Medicine
DX: Z78.0 Asymptomatic menopausal state (principal); M85.852 Other specified disorders of bone density and structure, left thigh
CPT/HCPCS: 77080

== ENCOUNTER → 2024-09-15 14:59 | Outpatient (CLI) | payer MEDICARE, OTHER, SELFPAY ==
--- NOTE | 2024-09-15 15:03 | DI.MG.S_ITS ---
BILATERAL DIGITAL SCREENING MAMMOGRAM 3D/2D WITH CAD WITH AUGMENTATION: 09/15/2024 CLINICAL: Routine screening. Comparison is made to exams dated: 08/07/2022 mammogram, 08/02/2021 mammogram, and 04/02/2020 mammogram - [facility]. The breasts are heterogeneously dense, which may obscure small masses (category c / 51-75% glandular tissue). Current study was also evaluated with a Computer Aided Detection (CAD) system. Bilateral breast implants are stable. No significant masses, calcifications, or other findings are seen in either breast. There has been no significant interval change. IMPRESSION: NEGATIVE There is no mammographic evidence of malignancy. A 1 year screening mammogram is recommended. Based on the Tyrer Cuzick model (a risk assessment model) the patient's lifetime risk is 9.4% and her 10 year risk is 5.2%. According to the ACR, ACS, and NCCN guidelines, an annual breast MRI exam along with mammogram is recommended if the patient's lifetime risk is 20% or greater. This exam was interpreted at Station ID: [id number]. NOTE: For mammograms, a report in lay terms will be sent to the patient. Approximately 15% of breast malignancies will not be visualized mammographically. In the management of a palpable breast mass, a negative mammogram must not discourage biopsy of a clinically suspicious lesion. Electronically Signed By: Nikolai perry/vaughn:09/15/2024 16:21:31 copy to: NII LEE letter sent: Normal Exam ACR BI-RADS Category 1: Negative
== END ==
PROVIDERS: PCP Family Medicine; Referring Provider Family Medicine; Visit Provider Family Medicine
DX: Z12.31 Encounter for screening mammogram for malignant neoplasm of breast (principal); R92.333 Mammographic heterogeneous density, bilateral breasts; Z98.82 Breast implant status
CPT/HCPCS: 77063; 77067

== ENCOUNTER → 2025-02-22 13:14 | Outpatient (CLI) | payer MEDICARE, OTHER, SELFPAY ==
[2025-02-22 14:08] LABS: Hemoglobin A1C% w Est Avg Glu 5.4 % (4.0-6.0)
[2025-02-22 15:42] LABS: Vitamin D 25 Hydroxy (D3) 96.5 ng/mL (30.0-100.0)
== END ==
LOC: LAB 13:16
PROVIDERS: PCP Family Medicine; Referring Provider Emergency Medicine; Visit Provider Emergency Medicine
DX: Z13.1 Encounter for screening for diabetes mellitus (principal); Z13.29 Encounter for screening for other suspected endocrine disorder; M85.80 Other specified disorders of bone density and structure, unspecified site; F52.0 Hypoactive sexual desire disorder; N95.1 Menopausal and female climacteric states
CPT/HCPCS: 36415; 82172; 82306; 83036; 83695